=== PATIENT | female | born 1975 | race Caucasian/White ===

== ENCOUNTER 2016-03-22 23:15 | Emergency (ER) | payer OTHER ==
[~2016-03-22] VITALS: Ht 167.6 cm; Wt 80.0 kg
[2016-03-22 23:19] VITALS: Ht 167.6 cm; Wt 80.0 kg
--- NOTE | 2016-03-22 23:54 | ERA ---
ER Documentation Chief Complaint Date/Time DATE: 03/22/16 TIME: 23:53 Chief Complaint sp abdominoplasty 2 days ago, c/o abd apin w/ vomiting, dizziness HPI The patient is a 40-year-old female, presenting to the ER because of abdominal incision pain from abdominoplasty 2 days ago, associated with nausea and vomiting. She denies fever, chills, neck pain, chest pain, pleuritic chest pain , diaphoresis, palpitation. He denied dysuria, diarrhea, constipation. She does not smoke, drink. The indwelling Rubio catheter and a MIROSLAVA drainage from the left lower abdomen Past medical history: Hypothyroidism Past surgical history: Abdominoplasty and one ROS All systems reviewed and are negative except as per history of present illness. Medications Home Meds Active Scripts Ondansetron (Ondansetron Odt) 4 Mg Tab.rapdis, 4 MG PO Q6H Y for NAUSEA AND/OR VOMITING, #10 TAB Prov:ARMINDA ARNOLD MD 03/23/16 Reported Medications [None] No Conflict Check 08/08/12 Allergies Allergies: Coded Allergies: No Known Allergy (Unverified , 12/12/12) PMhx/Soc History of Surgery: Yes (abdominoplasty) Anesthesia Reaction: No Hx Neurological Disorder: No Hx Respiratory Disorders: No Hx Cardiac Disorders: No Hx Psychiatric Problems: No Hx Miscellaneous Medical Probl: No Hx Alcohol Use: No Hx Substance Use: No Hx Tobacco Use: No Smoking Status: Never smoker Physical Exam Vitals Vital Signs Date Time Temp Pulse Resp B/P Pulse Ox O2 Delivery O2 Flow Rate FiO2 03/23/16 03:22 98.2 97 20 123/80 98 Room Air 03/23/16 01:00 98.0 88 20 126/82 98 Room Air 03/22/16 23:19 98.4 108 20 128/91 97 Physical Exam Const: No acute distress. Head: Atraumatic. Eyes: Normal Conjunctiva. ENT: Normal External Ears, Nose and Mouth. Neck: Full range of motion. No meningismus. Resp: Clear to auscultation bilaterally. Cardio: Regular rate and rhythm, no murmurs. Abd: Soft, non distended, normal bowel sounds, epigastric, lower abdominal incision tenderness, the incision is healing well, no discharge, no erythema Skin: No petechiae or rashes. Back: No midline or flank tenderness. Ext: No cyanosis, or edema. Neur: Awake and alert. No focal deficit Psych: Normal Mood and Affect. Result Diagram: 03/23/16 0000 03/23/16 0000 Results 24 hrs Laboratory Tests Test 03/23/16 00:00 Activated Partial Thromboplast Time 27.4Sec Alanine Aminotransferase (ALT/SGPT) 40IU/L Albumin 3.7g/dl Albumin/Globulin Ratio 1.05 Alkaline Phosphatase 71IU/L Anion Gap 18 Aspartate Amino Transf (AST/SGOT) 60IU/L Basophils # 0.010^3/ul Basophils % 0.2% Blood Urea Nitrogen 8mg/dl Calcium Level 8.7mg/dl Carbon Dioxide Level 27mmol/L Chloride Level 98mmol/L Creatinine 0.73mg/dl D-Dimer 986.58ng/ml D-Dimer Comment Direct Bilirubin 0.00mg/dl Eosinophils # 0.110^3/ul Eosinophils % 1.1% Globulin 3.50g/dl Glucose Level 125mg/dl Hematocrit 35.7% Hemoglobin 11.8g/dl INR International Normalized Ratio 1.02 Indirect Bilirubin 0.3mg/dl Lipase 40U/L Lymphocytes # 1.010^3/ul Lymphocytes % 9.7% Mean Corpuscular Hemoglobin 28.1pg Mean Corpuscular Hemoglobin Concent 33.1g/dl Mean Corpuscular Volume 85.0fl Mean Platelet Volume 11.8fl Monocytes # 0.510^3/ul Monocytes % 5.2% Neutrophils # 8.610^3/ul Neutrophils % 83.4% Nucleated Red Blood Cells # 0.010^3/ul Nucleated Red Blood Cells % 0.0/100WBC Platelet Count 01332^3/UL Potassium Level 3.6mmol/L Prothrombin Time 13.4Sec Prothrombin Time Ratio 1.0 Red Blood Count 4.2010^6/ul Red Cell Distribution Width 13.2% Serum HCG, Qualitative NEGATIVE Sodium Level 139mmol/L Total Bilirubin 0.3mg/dl Total Protein 7.2g/dl Troponin I < 0.012ng/ml White Blood Count 10.310^3/ul Current Medications Medications (Trade) Dose Ordered Sig/Wild Route PRN Reason Start Time Stop Time Status Last Admin Dose Admin Sodium Chloride (NS) 1,000 ml @ 1,000 mls/hr Q1H STAT IV 03/23/16 00:00 03/23/16 00:59 DC 03/23/16 00:12 Morphine Sulfate (morphine) 4 mg ONCE STAT IV 03/23/16 00:00 03/23/16 00:05 DC 03/23/16 00:12 Ondansetron HCl (Zofran Inj) 4 mg ONCE STAT IV 03/23/16 00:00 03/23/16 00:05 DC 03/23/16 00:12 Pantoprazole (Protonix Iv) 40 mg ONCE ONCE IV 03/23/16 00:00 03/23/16 00:05 DC 03/23/16 00:12 IV Flush 10 ml 10 ml STK-MED ONCE .ROUTE 03/23/16 01:53 03/23/16 01:54 DC 03/23/16 02:02 Sodium Chloride 100 ml @ ud STK-MED ONCE .ROUTE 03/23/16 01:53 03/23/16 01:54 DC 03/23/16 02:02 Iohexol (Omnipaque) 100 ml @ ud STK-MED ONCE .ROUTE 03/23/16 01:53 03/23/16 01:54 DC 03/23/16 02:02 Procedures/MDM EKG: Read by emergency physician Rate/Rhythm: Normal Sinus Rhythm 88 beats per min QRS, ST, T-waves: No ST elevation, no PVC, inferior T abnormality Impression: Abnormal EKG [place] [id number] Radiology Main Line: [phone] DIAGNOSTIC IMAGING REPORT Patient: KENYON DUQUE : 1975 Age: 40 Sex: F MR #: [id number] DOS: 03/23/16 0000 Ordering MD: ARMINDA ARNOLD MD Location: E/R Room/Bed: PROCEDURE: CHEST - 1 VIEW CLINICAL INDICATION: 40-year-old female with chest/abdominal pain. TECHNIQUE: A single frontal AP upright view of the chest was performed portably. The images were reviewed on a PACS workstation. COMPARISON: None. FINDINGS: There is a shallow inspiration accentuating the heart size. Accounting for this , the cardiomediastinal silhouette is within normal limits. There is mild bibasilar subsegmental atelectasis. There is no evidence for an infiltrate. There is no evidence for congestive heart failure. There is no evidence for pneumothorax. The osseous structures are intact. IMPRESSION: Bowel inspiration with mild bibasilar subsegmental atelectasis. .Brandon Gonzalez MD, Date Time Electronically viewed and signed by .Brandon Gonzalez MD, on 03/23/2016 02:05 .M/ CC: ARMINDA ARNOLD MD [place] [id number] Radiology Main Line: [phone] DIAGNOSTIC IMAGING REPORT Patient: KENYON DUQUE : 1975 Age: 40 Sex: F MR #: [id number] DOS: 03/23/16 0056 Ordering MD: ARMINDA ARNOLD MD Location: E/R Room/Bed: PROCEDURE: CTA Chest CLINICAL INDICATION: Chest pain TECHNIQUE: Thin section spiral CT images were obtained through the vasculature of the chest during administration of 80 cc of Omnipaque 350 contrast material. Multiplanar reconstructions and 3-D maximum intensity projection reconstructed images were performed. The images were reviewed on a PACS workstation. The total exam CTDI equals 42 mGy, and the total exam DLP equals 517.81 mGy-cm. One or more of the following dose reduction techniques were used: automated exposure control, adjustment of the mA and/or kV according to patient size, or use of iterative reconstruction technique. COMPARISON: Chest x-ray from the same day FINDINGS: Small left and tiny right pleural effusions are present. There is moderate patchy atelectasis or infiltrate in both lower lobes. Residual thymic tissue is seen. No hilar or mediastinal adenopathy is seen. No definite abnormality of the visualized upper abdomen. Contrast enhancement is suboptimal, perhaps due to injection issue or small IV size. No definite central pulmonary embolus is seen. There is no evidence for aortic dissection or aneurysm. There is air in the subcutaneous soft tissues of the anterior abdominal wall and flanks with stranding of the soft tissues. Question recent surgery. IMPRESSION: Bibasilar atelectasis or infiltrates. No gross central pulmonary embolus. Small left and tiny right pleural effusions. Air in the subcutaneous soft tissues of the anterior abdominal wall and flanks with some stranding. Question recent surgery? RPTAT: [facility] Crystal Hung Physician Date Time Electronically viewed and signed by Crystal Hung, Physician on 03/23/2016 03 :43 LE/ CC: ARMINDA ARNOLD MD MEDICAL MAKING DECISION: The patient is a 40-year-old female, presenting with acute postoperative pain, acute dehydration. She was treated with 1 L normal saline, morphine 4 mg IV and morphine 2 mg IV for pain, Zofran 4 mg IV x2 for nausea and Protonix 40 mg IV with good response. The differential diagnoses considered include but are not limited to pulmonary embolism, ACS, dehydration, cholelithiasis, cholecystitis, cystitis, pancreatitis, hepatitis, gastritis, peptic ulcer disease, gastric ulcer, appendicitis, diverticulitis, cholangitis, choledocholithiasis, partial small bowel obstruction. Departure Diagnosis: Primary Impression: Post-op pain Additional Impressions: Dehydration Anemia Condition: Good Comments He was discharged with Zofran ODT I discussed the findings with the patient. I advised the patient to follow-up with the primary physician in about 1-2 days, sooner if needed and return if any concern. The patient's blood pressure was elevated (>120/80) but appears stable without evidence of hypertension emergency or urgency. The patient was counseled about the risks of hypertension and urged to pursue outpatient monitoring and therapy within a week with their primary care physician. ARMINDA ARNOLD MD Mar 22, 2016 23:54
[2016-03-23] MEDS ORDERED: PANTOPRAZOLE 40 MG INJ IV ONE
[2016-03-23] MEDS ORDERED: morphine 4 MG/ML VIAL IV STA
[2016-03-23] MEDS ORDERED: SOD CHLORIDE 0.9% 1,000 ML IV STA
[2016-03-23] MEDS ORDERED: ONDANSETRON 4 MG INJ IV STA
[2016-03-23 00:50] LABS: INR 1.02; PROTIME 13.4 Sec (12.2-14.2)
[2016-03-23 00:51] LABS: ALBUMIN 3.7 g/dl (3.3-4.9); CHLORIDE 98 mmol/L (97-110); PARTIAL THROMBOPLASTIN TIME 27.4 Sec (25.0-35.0); POTASSIUM 3.6 mmol/L (3.5-5.1); SODIUM 139 mmol/L (135-144)
[2016-03-23 00:53] LABS: ANION GAP 18 (8-16); ASPARTATE AMINO TRANSFERASE 60 IU/L (15-46); BILIRUBIN,INDIRECT 0.3 mg/dl (0-1.1); BILIRUBIN,TOTAL 0.3 mg/dl (0.2-1.3); CARBON DIOXIDE 27 mmol/L (21-31); CREATININE 0.73 mg/dl (0.44-1.00); D-DIMER 986.58 ng/ml (<460)
[2016-03-23 00:54] LABS: ALANINE AMINOTRANSFERASE 40 IU/L (13-69); ALBUMIN/GLOBULIN RATIO 1.05; ALKALINE PHOSPHATASE 71 IU/L (42-121); BLOOD UREA NITROGEN 8 mg/dl (7-20); CALCIUM 8.7 mg/dl (8.4-10.2); GLUCOSE 125 mg/dl (70-220); TOTAL PROTEIN 7.2 g/dl (6.1-8.1)
[2016-03-23 01:14] LABS: TROPONIN-I < 0.012 ng/ml (0.00-0.12)
[2016-03-23 01:38] LABS: BASOPHILS % 0.2 % (0.0-2.0); EOSINOPHILS % 1.1 % (0.0-7.0); HEMATOCRIT 35.7 % (37.0-47.0); HEMOGLOBIN 11.8 g/dl (12.0-16.0); LYMPHOCYTES % 9.7 % (15.0-51.0); MEAN CORPUSCULAR HEMOGLOBIN 28.1 pg (29.0-33.0); MEAN CORPUSCULAR HGB CONC 33.1 g/dl (32.0-37.0); MEAN PLATELET VOLUME 11.8 fl (7.4-10.4); MONOCYTES % 5.2 % (0.0-11.0); NEUTROPHIL # 8.6 10^3/ul (1.6-7.5); NEUTROPHILS % 83.4 % (39.0-77.0); PLATELET COUNT 273 10^3/UL (140-440); RED CELL DISTRIBUTION WIDTH 13.2 % (11.5-14.5); UNCORRECTED WBC 10.3 10^3/ul (4.8-10.8); WHITE BLOOD COUNT 10.3 10^3/ul (4.8-10.8)
[2016-03-23 01:39] LABS: EOSINOPHILS # 0.1 10^3/ul (0.0-0.5); MONOCYTE # 0.5 10^3/ul (0.3-0.9)
[2016-03-23] MEDS ORDERED: IOHEXOL 100 ML ONE (01:53)
[2016-03-23] MEDS ORDERED: SOD CHLORIDE 0.9% 100 ML ONE (01:53)
--- NOTE | 2016-03-23 02:06 | RADRPT ---
PROCEDURE: CHEST - 1 VIEW CLINICAL INDICATION: 40-year-old female with chest/abdominal pain. TECHNIQUE: A single frontal AP upright view of the chest was performed portably. The images were reviewed on a PACS workstation. COMPARISON: None. FINDINGS: There is a shallow inspiration accentuating the heart size. Accounting for this, the cardiomediasti nal silhouette is within normal limits. There is mild bibasilar subsegmental atelectasis. There is no evidence for an infiltrate. There is no evidence for congestive heart failure. There is no evid ence for pneumothorax. The osseous structures are intact. IMPRESSION: Bowel inspiration with mild bibasilar subsegmental atelectasis. .Brandon Gonzalez MD, MD Date Time Electronically viewed and signed by .Brandon Gonzalez MD, on 03/23/2016 02:05 .M/
--- NOTE | 2016-03-23 03:43 | RADRPT ---
PROCEDURE: CTA Chest CLINICAL INDICATION: Chest pain TECHNIQUE: Thin section spiral CT images were obtained through the vasculature of the chest during administration of 80 cc of Omnipaque 350 contrast material. Multiplanar reconstructions and 3-D ma ximum intensity projection reconstructed images were performed. The images were reviewed on a PACS workstation. The total exam CTDI equals 42 mGy, and the total exam DLP equals 517.81 mGy-cm. One or more of the following dose reduction techniques were used: automated exposure control, adjustment of the mA and/or kV according to patient size, or use of iterative reconstruction technique. COMPARISON: Chest x-ray from the same day FINDINGS: Small left and tiny right pleural effusions are present. There is moderate patchy atelectasis or in filtrate in both lower lobes. Residual thymic tissue is seen. No hilar or mediastinal adenopathy i s seen. No definite abnormality of the visualized upper abdomen. Contrast enhancement is suboptima l, perhaps due to injection issue or small IV size. No definite central pulmonary embolus is seen. There is no evidence for aortic dissection or aneurysm. There is air in the subcutaneous soft tiss ues of the anterior abdominal wall and flanks with stranding of the soft tissues. Question recent s urgery. IMPRESSION: Bibasilar atelectasis or infiltrates. No gross central pulmonary embolus. Small left and tiny righ t pleural effusions. Air in the subcutaneous soft tissues of the anterior abdominal wall and flanks with some stranding. Question recent surgery? RPTAT: [facility] Physician Jake Date Time Electronically viewed and signed by Physician Jake on 03/23/2016 03:43 LE/
[2016-03-23] MEDS ORDERED: ONDA4TAB14 PO (03:55)
[2016-03-23] MEDS ORDERED: morphine 2 MG INJ IV ONE (04:05)
[2016-03-23] MEDS ORDERED: ONDANSETRON 4 MG INJ IV ONE (04:05)
[2016-03-23 04:15] VITALS: BP 107/80; PULSE 92; RESP 20; TEMP 98
== END 2016-03-23 04:24 | disposition home or self-care (01) ==
LOC: E/R 23:15
DX: G89.18 Other acute postprocedural pain (principal); E86.0 Dehydration; D64.9 Anemia, unspecified; R11.2 Nausea with vomiting, unspecified; R07.9 Chest pain, unspecified
CPT/HCPCS: 36415; 71010; 71275; 80053; 83690; 84484; 84703; 85025; 85378; 85610; 85730; 93005; 96374; 96375; C9113; J2270; J2405; J7030; Q9967; Z7502; Z7610